=== PATIENT | male | born 1945 | race Caucasian/White ===

== ENCOUNTER → 2017-08-16 | Outpatient (CLI) | payer BC, OTHER ==
[~2017-08-16] MED LIST: ASPEC325 PO; CITRUCEL PO; LISI5TAB3 PO; MULT-506 PO
[2017-08-16 12:40] LABS: BASO % 0.5 %; BASO ABS # 0.03 K/uL (0-0.2); COMPLETE YES; EOS % 0.7 %; HEMATOCRIT 47.5 % (42-52); IG% 0.4 %; LYMPH % 16.1 %; LYMPH ABS # 0.89 K/uL (1.2-3.4); MEAN CELL VOLUME 93.3 fL (80-100); MEAN CORPUSCULAR HGB CONC 35.4 g/dl (32-36); MEAN PLATELET VOLUME 10.2 fL (7.4-10.4); MONO % 7.8 %; NEUT % 74.5 %; PLATELET COUNT 187 K/uL (130-400); RED BLOOD COUNT 5.09 M/uL (4.7-6.1); WHITE BLOOD COUNT 5.52 K/uL (4.8-10.8)
[2017-08-16 12:46] LABS: URINE APPEARANCE CLEAR (CLEAR); URINE BILIRUBIN NEG (NEG); URINE COLOR YELLOW; URINE EPITHELIAL CELL AUTO 0-5 /lpf (0-5); URINE NITRITE NEG (NEG); URINE PH 6.5 (4.5-7.5); URINE SPECIFIC GRAVITY 1.018 (1.000-1.030); UROBILINOGEN NEG (NEG)
[2017-08-16 12:54] LABS: MANUAL MICROSCOPIC REQUIRED? NO; REVIEW REQ? YES
[2017-08-16 13:25] LABS: ALT/SGPT 24 U/L (12-78); AST/SGOT 24 U/L (15-37); BLOOD UREA NITROGEN 15 mg/dl (7-18); BUN/CREATININE RATIO 15.7 (10-20); CARBON DIOXIDE 26 mmol/L (21-32); CHLORIDE 100 mmol/L (98-107); CREATININE 0.93 mg/dl (0.60-1.40); GLUCOSE 95 mg/dl (70-99); POTASSIUM 4.3 mmol/L (3.5-5.1); SODIUM 134 mmol/L (136-145)
[2017-08-16 13:30] LABS: ALB/GLOB RATIO 1.1 (0.9-2); ALKALINE PHOSPHATASE 107 U/L (45-117); CHOLESTEROL 159 mg/dl (0-200); CHOLESTEROL/HDL RATIO 3.3; HDL CHOLESTEROL 48 mg/dl; LDL CHOLESTEROL CALCULATED 98 mg/dl; TRIGLYCERIDES 63 mg/dl (0-150); VERY LOW DENSITY LIPOPROT CALC 13 mg/dl
== END | disposition home or self-care (01) ==
LOC: C.LABBFT 10:58
PROVIDERS: ATTEND Physician Assistant Medical
DX: I10 Essential (primary) hypertension (principal); N40.1 Benign prostatic hyperplasia with lower urinary tract symptoms; Z12.5 Encounter for screening for malignant neoplasm of prostate

== ENCOUNTER → 2017-09-02 | Outpatient (CLI) | payer OTHER ==
[2017-09-02 12:44] LABS: BLOOD UREA NITROGEN 11 mg/dl (7-18); BUN/CREATININE RATIO 10.6 (10-20); CALCIUM 9.5 mg/dl (8.5-10.1); CARBON DIOXIDE 28 mmol/L (21-32); CHLORIDE 102 mmol/L (98-107); CREATININE 1.01 mg/dl (0.60-1.40); GLUCOSE 82 mg/dl (70-99); POTASSIUM 3.7 mmol/L (3.5-5.1); SODIUM 136 mmol/L (136-145)
== END | disposition home or self-care (01) ==
LOC: C.LABBFT 10:16
PROVIDERS: ATTEND Physician Assistant Medical
DX: I10 Essential (primary) hypertension (principal)

== ENCOUNTER → 2017-12-20 | Outpatient (CLI) | payer BC ==
[~2017-12-20] MED LIST changes: +ACET1TAB84 PO; -ASPEC325 PO; +ASPI81TA28 PO; -CITRUCEL PO; +LISI-729 PO; -LISI5TAB3 PO; +METH500T3 PO; +METHPOW7 PO; +MISCTAB88 PO; +MULT-1093 PO; -MULT-506 PO; +TAMS0.4C38 PO
[2017-12-20 14:37] LABS: BASO % 0.4 %; BASO ABS # 0.02 K/uL (0-0.2); EOS % 0.8 %; EOS ABS # 0.04 K/uL (0-0.5); HEMATOCRIT 44.5 % (42-52); HEMOGLOBIN 16.4 g/dL (14.0-18.0); IG# 0.01 K/uL (0.00-0.02); LYMPH % 20.8 %; LYMPH ABS # 1.01 K/uL (1.2-3.4); MEAN CELL VOLUME 92.1 fL (80-100); MEAN CORPUSCULAR HGB CONC 36.9 g/dl (32-36); MONO % 9.5 %; MONO ABS # 0.46 K/uL (0.11-0.59); NEUT % 68.3 %; NEUT ABS # 3.31 K/uL (1.4-6.5); PLATELET COUNT 157 K/uL (130-400); RED CELL DISTRIBUTION WIDTH CV 12.8 % (11.5-14.5); RED CELL DISTRIBUTION WIDTH SD 43.6 fL (36.4-46.3); WHITE BLOOD COUNT 4.85 K/uL (4.8-10.8)
[2017-12-20 14:49] LABS: PTT PATIENT 29.9 SECONDS (21.0-31.0)
[2017-12-20 15:06] LABS: BLOOD UREA NITROGEN 7 mg/dl (7-18); CALCIUM 9.6 mg/dl (8.5-10.1); CARBON DIOXIDE 29 mmol/L (21-32); CREATININE 1.03 mg/dl (0.60-1.40); GLUCOSE 81 mg/dl (70-99); POTASSIUM 4.1 mmol/L (3.5-5.1); SODIUM 131 mmol/L (136-145)
== END | disposition home or self-care (01) ==
LOC: C.CPL 14:07
PROVIDERS: ATTEND Physician Assistant
DX: Z01.818 Encounter for other preprocedural examination (principal); H93.90 Unspecified disorder of ear, unspecified ear

== ENCOUNTER → 2017-12-30 | Day surgery (SDC) | payer BC ==
[2017-12-13 11:12] VITALS: BMI 24.0
[~2017-12-30] VITALS: Ht 170.2 cm; Wt 69.9 kg
[~2017-12-30] MED LIST changes: +ACETAMINOPHEN 325 MG TAB PO PRN; +ATROPINE SULFATE 0.1 MG/ML 5ML SYR IV PRN; +CEFAZOLIN 2000MG IV PUSH 15 ML IV SCH; +DEXAMETHASONE SOD INJ 4 MG/ML VIAL ONE; +EpHEDrine SULFATE INJ 50 MG/ML AMP IV PRN; +FENTANYL CITRATE INJ 50 MCG/1 ML 2 ML VIAL IV PRN; +FENTANYL CITRATE INJ 50 MCG/1 ML 2 ML VIAL ONE; +LACTATED RINGER'S 1000ML 1,000 ML IV SCH; +LIDOCAINE HCL 2% 2 ML VIAL (20MG/ML) ONE; +LIDOCAINE/EPINEPHRINE 1% 20 ML VIAL ONE; +MIDAZOLAM HCL 1 MG/ML 2ML VIAL ONE; +MoRPHine SULFATE 2 MG/ML CARP IV PRN; +ONDANSETRON INJ 2 MG/ML 2 ML VIAL IV PRN; +ONDANSETRON INJ 2 MG/ML 2 ML VIAL ONE; +OXYCODONE/ACETAMINOPHEN 5-325 TAB PO PRN; +POVIDONE-IODINE OP SOLN 30 ML BTL ONE; +PROPOFOL IV EMULSION 10 MG/ML 20 ML VIAL IV ONE; +SODIUM CHLORIDE 0.9% 1000ML 1,000 ML IV SCH
[2017-12-30 06:48] VITALS: Ht 170.2 cm; Wt 69.9 kg
--- NOTE | 2017-12-30 07:00 | History & Physical Bridge - [place] ---
H&P Re-Evaluation Bridge Note: I have examined the patient, reviewed the History & Physical and in the interval since the performance of the History & Physical I have noted the following changes of clinical significance: No changes noted
--- NOTE | 2017-12-30 08:43 | [facility] Post Operative Brief Note ---
Immediate Operative Summary Operative Date Dec 30, 2017. Pre-Operative Diagnosis Left Ear Posterior Keratoacanthoma Post-Operative Diagnosis same Procedure(s) Performed Left Posterior Ear Keratoacathoma Excision With Frozen Section And Full Thickness Skin Graft Surgeon Dr. Rica Ramsey Tax Advisor Surgeon(s) SELENE Gaytan Estimated Blood Loss 2CC Findings Consistent with Post-Op Diagnosis Specimens A. Left Postertior Ear Keratoacanthoma --Suture costa 12:00--sent for Frozen Section Anesthesia Type MAC Complication(s) none Disposition Disposition: Recovery Room / PACU
[2017-12-30 08:45] VITALS: TEMP 36.9
--- NOTE | 2017-12-30 08:57 | Medical Student: [facility] ---
Operative Report Operative Date Dec 30, 2017. 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 Ramsey Pbx Wire Chief Surgeon(s) None Estimated Blood Loss 2 ml Findings keratoacanthoma on the left posterior ear Specimens None Drains None Anesthesia Sedation with local anesthesia Complication(s) None Disposition Recovery Room / PACU
--- NOTE | 2017-12-30 08:58 | Anesthesia Progress Nt - [facility] ---
Anesthesia Post Op Note Date & Time Dec 30, 2017 at 08:57 Vital Signs Pain Intensity: 0 Vital Signs Past 12 Hours Date Time Temp Pulse Resp B/P (MAP) Pulse Ox O2 Delivery O2 Flow Rate FiO2 12/30/17 08:45 36.9 70 16 130/75 (93) 94 Room Air 12/30/17 06:30 36.7 85 20 133/79 (97) 96 Room Air Notes Mental Status: alert / awake / arousable, participated in evaluation Pt Amnestic to Procedure: Yes Nausea / Vomiting: adequately controlled Pain: adequately controlled Airway Patency, RR, SpO2: stable & adequate BP & HR: stable & adequate Hydration State: stable & adequate Anesthetic Complications: no major complications apparent
--- NOTE | 2017-12-30 09:01 | Discharge Instructions-SurgCtr ---
Discharge Instructions Date of Service Dec 30, 2017. Visit Reason for Visit: Left Ear Keratoacanthoma Discharge Discharge Diagnosis / Problem: keratoacanthoma left ear Discharge Goals Goal(s): Decrease discomfort, Improve function Medications Stopped Medications Name(s): Aspirin 81mg daily, last dose 12/26/17 Activity Recommendations Activity Limitations: per Instructions/Follow-up section Anesthesia . Post Anesthesia Instructions: If you have had General Anesthesia or IV Sedation: * Do not drive today. * Resume driving when surgeon permits. * Do not make important decisions or sign legal documents today. * Call surgeon for: 1. Temperature elevations greater than 101 degrees F. 2. Uncontrollable pain. 3. Excessive bleeding. 4. Persistent nausea and vomiting. 5. Medication intolerance (nausea, vomiting or rash). * For nausea and vomiting use only clear liquids such as: tea, soda, bouillon until nausea subsides, then gradually increase diet as tolerated. * If you have any concerns or questions, call your surgeon's office. If physician is unavailable and it is an emergency, call 911 or go to the nearest emergency room. . Instructions / Follow-Up Instructions / Follow-Up ACTIVITY RECOMMENDATIONS: __Normal activities _x_No bending, lifting or straining __No driving _x_Driving allowed when you are off pain medications __Walking permitted __You should have help at home for ___ days DRESSINGS: __No dressings required _x_Keep dressings dry/in place until first office visit-ok to change outer gauze in 48 hours, leave cotton ball dressing in place __Remove dressings ___ and leave dressings off _x_Apply ice __2_ days if desired to both sites __Remove dressings and reapply garment __Apply antibiotic ointment (Bacitracin, Neosporin, etc) to wounds 3-4 times/ day for 10 days BATHING: x__Keep dressings dry _x_Sponge bathing permitted __Showering permitted x__No swimming, hot tubs or soaking in a tub MEDICATIONS: Resume previous medications unless instructed otherwise by your surgeon. _x_Do not use aspirin, Motrin, Advil or Ibuprofen as these may promote bleeding. Please use Tylenol. _x_Prescription(s) provided: in office OTHER INSTRUCTIONS: __Record drain output 2-3 times per day SPECIAL CARE INSTRUCTIONS: * It is normal to have a mild fever after surgery. If your temperature is higher than 101.5 degrees F, please call the office at [phone]. * Constipation is a typical side effect of pain medication. An over-the- counter stool softener will help relieve this. * Leaking around surgical drains may occur and should not cause concern. Sometimes these drains become clogged. If this happens, remove the bulb and milk the clot out of the tube, then replace the bulb. * Drainage from wounds after liposuction is normal and should be expected. Garments will become soiled. You should protect furniture and bedding. This drainage should mostly subside within 2-3 days. Leave garments in place unless instructed to remove them. * If you have unusual drainage from a wound or are concerned you have an infection or have any questions or concerns, please call the office at [phone]. FOLLOW UP VISIT: If not already scheduled, please call the office, , when you return home after surgery to schedule an appointment Diet Recommendations Home Diet: no limitations, resume previous diet Procedures Procedures Performed: Left Posterior Ear Keratoacathoma Excision With Frozen Section And Full Thickness Skin Graft Pending Studies Studies pending at discharge: no Medical Emergencies . Who to Call and When: Medical Emergencies: If at any time you feel your situation is an emergency, please call 911 immediately. . Non-Emergent Contact Non-Emergency issues call your: Primary Care Provider . . "Provider Documentation" section prepared by Roopa Ramsey. . [place] Drug Monitoring Program Search Results: patient reviewed within database (preop), no issues identified
[2017-12-30 09:14] VITALS: BP 128/77; PULSE 68; O2SAT 96
--- NOTE | 2018-01-02 08:22 | OPERATIVE REPORT ---
DATE OF OPERATION: 12/30/2017 PREOPERATIVE DIAGNOSIS: Left posterior ear keratoacanthoma versus squamous cell carcinoma. POSTOPERATIVE DIAGNOSIS: Same. PROCEDURE: Excision left posterior ear squamous cell carcinoma with placement of a full thickness skin graft. SURGEON: Roopa Ramsey MD. CALLISTHENICS INSTRUCTOR: None. ANESTHESIA: Local with sedation. COMPLICATIONS: None. INDICATION FOR THE PROCEDURE: The patient is a 72-year-old male referred to me by Dr. Hernandez regarding a likely keratoacanthoma of his left posterior ear. Based on pathology report which showed extension to the base of the biopsy with a diagnosis of keratoacanthoma rather than squamous cell carcinoma, we discussed a need for excision. Given the location, he was consented for full thickness skin grafting. BRIEF DESCRIPTION OF THE PROCEDURE: Risks, benefits, and alternatives of the procedure were explained to the patient who agreed and signed consent. He was identified and marked in the preoperative holding area. He was brought to the operating room where he was positioned supine and placed under sedation without incident. Surgical site was prepped and draped sterilely. A time-out procedure was performed. I began by marking the donor site for the full-thickness graft harvest along the left clavicle. Skin was prepped with Betadine. 1% lidocaine with epinephrine was used to anesthetize the area. Subsequent to this, the lesion which was mainly residual scar was marked for excision as well. This included the scar which measured 1 cm as well as a 3 mm margin of normal tissue for maximal excision diameter of 1.6 cm. A 15 blade scalpel was used to harvest the left clavicular full thickness graft and hemostasis was achieved with electrocautery. The graft was wrapped in a saline soaked sponge during closure. Wound was reapproximated using 3-0 Vicryl interrupted dermal sutures and 3-0 Monocryl running subcuticular suture. The lesion from the posterior ear was excised using a 15 blade scalpel down to perichondrium. A suture marked at 12 o'clock and the lesion was sent for pathology. Hemostasis was achieved with electrocautery. While awaiting frozen section results, the full-thickness graft was defatted and inset was begun using 5-0 silk tie over bolster sutures. Frozen section report showed all margins were negative. The remainder of the graft was inset using 5-0 chromic interrupted sutures and a tie over bolster dressing was created using Xeroform and sterile cotton. Dermabond was applied to the donor site. [place] dressing was applied in the PACU. The procedure was tolerated well. The patient was awakened and transferred to recovery in satisfactory condition. I attest to the content of the Intraoperative Record and any orders documented therein. Any exception s are noted below.
== END | disposition home or self-care (01) ==
LOC: X.SURG 06:15
PROVIDERS: ATTEND Plastic Surgery
DX: C44.92 Squamous cell carcinoma of skin, unspecified (principal); L85.8 Other specified epidermal thickening; I10 Essential (primary) hypertension; M19.90 Unspecified osteoarthritis, unspecified site; Z79.82 Long term (current) use of aspirin; Z87.891 Personal history of nicotine dependence